=== PATIENT | female | born 1985 | race African-American/Black ===

== ENCOUNTER 2017-03-02 08:28 | Outpatient (CLI) | payer MEDICAID | END 2017-03-02 10:41 | LOC: D.MAMMO 08:28 | DX: N63 Unspecified lump in breast (principal) ==

== ENCOUNTER → 2017-04-07 10:32 | Outpatient (CLI) | payer MEDICAID | END | disposition home or self-care (01) | LOC: D.US 10:32 | DX: N63 Unspecified lump in breast (principal) ==

== ENCOUNTER 2017-05-02 00:09 | Emergency (ER) | payer MEDICAID | END 2017-05-02 01:15 | disposition home or self-care (01) | LOC: D.ER 00:09 | DX: A08.4 Viral intestinal infection, unspecified (principal); M54.5 Low back pain; F17.200 Nicotine dependence, unspecified, uncomplicated; R19.7 Diarrhea, unspecified ==

== ENCOUNTER 2017-06-14 00:44 | Emergency (ER) | payer MEDICAID ==
[2017-06-14 01:32] LABS: HCG URINE NEGATIVE (NEGATIVE)
[2017-06-14 01:35] LABS: APPEARANCE SLT CLOUDY (CLEAR); BILIRUBIN NEGATIVE (NEGATIVE); COLOR DK YELLOW (YELLOW); GLUCOSE NEGATIVE (NEGATIVE); KETONE NEGATIVE (NEGATIVE); LEUKOCYTE ESTERASE 2+ (NEGATIVE); NITRITE NEGATIVE (NEGATIVE); PROTEIN 2+ mg/dL (NEGATIVE); UROBILINOGEN NORMAL (NORMAL)
[2017-06-14 01:37] LABS: BACTERIA MODERATE /hpf (NONE SEEN); EPITHELIAL CELLS 0-5 /hpf (0-5); HYALINE CAST 0-5 /lpf (NONE SEEN); MUCUS <1+ /lpf (NONE SEEN); RED CELLS - URINE 0-5 /hpf (0-5)
== END 2017-06-14 02:20 | disposition home or self-care (01) ==
LOC: D.ER 00:44
PROVIDERS: Family Medicine
DX: J01.90 Acute sinusitis, unspecified (principal)

== ENCOUNTER 2017-07-07 11:01 | Emergency (ER) | payer MEDICAID ==
[2017-07-07 11:55] LABS: BASOPHILS 0.2 % (0-2); EOSINOPHILS 0.9 % (0-7); HEMATOCRIT 33.2 % (36.0-48.0); HEMOGLOBIN 10.4 g/dL (12-16); IMMATURE GRANULOCYTES 0.2 % (0-5); LYMPHOCYTES 24.9 % (15-50); MCHC 31.3 g/dL (31.0-37.0); MCV 66.9 fL (80.0-100.0); MEAN PLATELET VOLUME 8.6 fL (7.4-10.4); MONOCYTES 8.3 % (2-11); NEUTROPHILS 65.5 % (40-80); RBC 4.96 10x6/uL (4.00-5.40); RDW 20.1 % (11.5-14.5); WBC 8.1 10x3/uL (4.8-10.8)
[2017-07-07 11:59] LABS: PLATELET COUNT 448 10x3/uL (130-400)
[2017-07-07 12:23] LABS: ALBUMIN 3.4 g/dL (3.4-5.0); ALKALINE PHOSPHATASE 106 U/L (46-116); ALT (SGPT) 31 U/L (10-68); BILIRUBIN - TOTAL 0.39 mg/dL (0.2-1.3); CALC OSMOLALITY 274 mosm/kg (275-300); CALCIUM 8.8 mg/dL (8.5-10.1); CARBON DIOXIDE 23.5 mmol/L (21.0-32.0); CHLORIDE - SERUM 106 mmol/L (98-107); CREATININE - SERUM 1.1 mg/dL (0.6-1.3); GLUCOSE 101 mg/dL (74-106); POTASSIUM - SERUM 3.9 mmol/L (3.5-5.1); PROTEIN - SERUM 8.2 g/dL (6.4-8.2); SODIUM 138 mmol/L (136-145); UREA NITROGEN 11 mg/dL (7-18); eGFR NON AFRICAN AMERICAN 60 mL/min (90-120)
[2017-07-07 12:24] LABS: TROPONIN-I < 0.017 ng/mL (0.000-0.060)
== END 2017-07-07 13:49 | disposition home or self-care (01) ==
LOC: D.ER 11:01
PROVIDERS: Emergency Medicine
DX: J20.9 Acute bronchitis, unspecified (principal); F17.200 Nicotine dependence, unspecified, uncomplicated; I49.3 Ventricular premature depolarization

== ENCOUNTER 2020-03-26 22:06 | Inpatient (IN) | payer MEDICAID ==
[~2020-03-26] VITALS: Ht 162.6 cm; Wt 104.3 kg
[2020-03-26] MEDS ORDERED: CYMBALTA60 MG PO (22:19)
[2020-03-26] MEDS ORDERED: GABAPENTIN300 MG PO (22:20)
[2020-03-26] MEDS ORDERED: CELEBREX50 MG PO (22:20)
[2020-03-26] MEDS ORDERED: VISTARIL50 MG PO (22:21)
[2020-03-26 22:42] LABS: BASOPHILS 0.2 % (0-2); EOSINOPHILS 1.9 % (0-7); HEMATOCRIT 43.5 % (36.0-48.0); HEMOGLOBIN 14.5 g/dL (12-16); IMMATURE GRANULOCYTES 0.3 % (0-5); LYMPHOCYTES 34.2 % (15-50); MCH 26.1 pg (26.0-34.0); MCHC 33.3 g/dL (31.0-37.0); MCV 78.2 fL (80.0-100.0); MEAN PLATELET VOLUME 9.2 fL (7.4-10.4); MONOCYTES 10.2 % (2-11); NEUTROPHILS 53.2 % (40-80); PLATELET COUNT 361 10x3/uL (130-400); RBC 5.56 10x6/uL (4.00-5.40); RDW 17.4 % (11.5-14.5); WBC 10.4 10x3/uL (4.8-10.8)
[2020-03-26 22:46] LABS: BILIRUBIN NEGATIVE (NEGATIVE); GLUCOSE NEGATIVE (NEGATIVE); KETONE NEGATIVE (NEGATIVE); NITRITE NEGATIVE (NEGATIVE); SPECIFIC GRAVITY 1.015 (1.005-1.020); UROBILINOGEN NORMAL (NORMAL)
[2020-03-26 22:52] LABS: HCG SERUM NEGATIVE (NEGATIVE)
[2020-03-26 22:53] LABS: BACTERIA MODERATE /hpf (NEGATIVE); RED CELLS - URINE 0-5 /hpf (0-5); WHITE CELLS - URINE 25-50 /hpf (NEGATIVE)
[2020-03-26 22:54] LABS: ALBUMIN 3.3 g/dL (3.4-5.0); ANION GAP 13.9 mmol/L (8-16); BILIRUBIN - TOTAL 0.65 mg/dL (0.2-1.3); CALCIUM 8.8 mg/dL (8.5-10.1); CARBON DIOXIDE 25.9 mmol/L (21.0-32.0); CREATININE - SERUM 2.5 mg/dL (0.6-1.3); PROTEIN - SERUM 7.7 g/dL (6.4-8.2)
[2020-03-26 22:55] LABS: UDS - AMPHET NEGATIVE QUAL (NEGATIVE); UDS - BARB NEGATIVE QUAL (NEGATIVE); UDS - BENZO NEGATIVE QUAL (NEGATIVE); UDS - COCAINE NEGATIVE QUAL (NEGATIVE); UDS - OPIATE NEGATIVE QUAL (NEGATIVE); UDS - PCP NEGATIVE QUAL (NEGATIVE); UDS - THC POSITIVE QUAL (NEGATIVE)
[2020-03-26 22:55] LABS: POTASSIUM - SERUM 2.8 mmol/L (3.5-5.1)
--- NOTE | 2020-03-27 00:12 | NUR ---
PT TO RADIOLOGY VIA WHEELCHAIR AT THIS TIME.
--- NOTE | 2020-03-27 00:23 | NUR ---
PT RETURNED FROM RADIOLOGY VIA WHEELCHAIR AT THIS TIME.
--- NOTE | 2020-03-27 02:40 | NUR ---
PT ARRIVED TO THE FLOOR. ALERT AND ORIENTED. NO SIGNS OF DISTRESS. BREATHING EVEN AND UNLABORED. PT STATES NO PROBLEMS AT THIS TIME. IV SITE RT FA DRESSING CLEAN DRY AND INTACT. NO SIGNS OF INFECTION OR INFULTRATION. SKIN CLEAN DRY AND INTACT. LUNG SOUNDS CLEAR. BOWEL SOUNDS ACTIVE. WILL CONTINUE PLAN OF CARE. CALL LIGHT IN REACH. BED LOWERED AND LOCKED. BED RAILS UPX1.
[2020-03-27] MEDS ORDERED: CYCLOBENZAPRINE10 MG PO (02:42)
[2020-03-27 02:54] VITALS: BP 127/76; BMI 39.5
[2020-03-27 04:00] VITALS: BP 127/76
[2020-03-27 05:28] LABS: BASOPHILS 0.3 % (0-2); EOSINOPHILS 1.9 % (0-7); HEMATOCRIT 36.8 % (36.0-48.0); IMMATURE GRANULOCYTES 0.1 % (0-5); LYMPHOCYTES 38.9 % (15-50); MCH 25.6 pg (26.0-34.0); MCHC 32.6 g/dL (31.0-37.0); MCV 78.5 fL (80.0-100.0); MEAN PLATELET VOLUME 9.3 fL (7.4-10.4); MONOCYTES 11.8 % (2-11); PLATELET COUNT 323 10x3/uL (130-400); RBC 4.69 10x6/uL (4.00-5.40); RDW 17.5 % (11.5-14.5)
[2020-03-27 05:35] LABS: WBC 7.3 10x3/uL (4.8-10.8)
[2020-03-27 05:45] LABS: ALBUMIN 2.6 g/dL (3.4-5.0); ANION GAP 10.4 mmol/L (8-16); BILIRUBIN - TOTAL 0.48 mg/dL (0.2-1.3); CALCIUM 7.7 mg/dL (8.5-10.1); CARBON DIOXIDE 26.4 mmol/L (21.0-32.0); PROTEIN - SERUM 6.2 g/dL (6.4-8.2)
[2020-03-27 06:10] LABS: POTASSIUM - SERUM 2.8 mmol/L (3.5-5.1)
--- NOTE | 2020-03-27 07:52 | NUR ---
RESTING IN BED, NO DISTRESS NOTED, TELE IN PLACE, IV INFUSING, REPLACING K THIS AM, CONT TO MONITOR NAUSEA AND LABS
[2020-03-27] MEDS ORDERED: CELEBREX200 MG (08:57)
[2020-03-27 09:00] VITALS: BP 105/70
[2020-03-27 11:03] VITALS: Ht 162.6 cm; Wt 104.3 kg
[2020-03-27 12:57] VITALS: BP 119/80
[2020-03-27 16:53] VITALS: BP 119/76
[2020-03-27 20:00] VITALS: BP 119/76
[2020-03-28] VITALS: BP 122/72
--- NOTE | 2020-03-28 00:34 | NUR ---
I have reviewed this patient and I concur with the Shift Assessment completed by the Licensed Practical Nurse today this shift.
--- NOTE | 2020-03-28 02:34 | NUR ---
IV INFULTRATED. NEW IV SITED LT HAND 22G. ATEMPTS X2. PT TOLERATED WELL. WILL CONTINUE IV FLUIDS. CALL LIGHT IN REACH. BED LOWERED AND LOCKED. BED RAILS UPX2.
[2020-03-28 04:00] VITALS: BP 112/81
[2020-03-28 06:52] LABS: ANION GAP 13.2 mmol/L (8-16); CALCIUM 7.4 mg/dL (8.5-10.1); CARBON DIOXIDE 24.6 mmol/L (21.0-32.0); CREATININE - SERUM 1.6 mg/dL (0.6-1.3); MAGNESIUM - SERUM 1.4 mg/dL (1.8-2.4); PHOSPHOROUS 3.8 mg/dL (2.5-4.9)
[2020-03-28 06:53] LABS: POTASSIUM - SERUM 3.8 mmol/L (3.5-5.1)
[2020-03-28 07:10] LABS: BASOPHILS 0.4 % (0-2); EOSINOPHILS 4.2 % (0-7); HEMOGLOBIN 11.1 g/dL (12-16); IMMATURE GRANULOCYTES 0.2 % (0-5); LYMPHOCYTES 40.7 % (15-50); MCH 25.9 pg (26.0-34.0); MCHC 32.6 g/dL (31.0-37.0); MCV 79.3 fL (80.0-100.0); MEAN PLATELET VOLUME 9.2 fL (7.4-10.4); NEUTROPHILS 43.5 % (40-80); PLATELET COUNT 290 10x3/uL (130-400); RBC 4.29 10x6/uL (4.00-5.40); RDW 17.6 % (11.5-14.5)
[2020-03-28 07:11] LABS: WBC 4.8 10x3/uL (4.8-10.8)
--- NOTE | 2020-03-28 08:58 | NUR ---
MAG REPLACED PER PROTOCOL. MEDS GIVEN PER EMAR. CL IN REACH. NO FURTHER NEEDS AT THIS TIME. WCTM
[2020-03-28 09:22] VITALS: BP 105/65
--- NOTE | 2020-03-28 10:52 | NUR ---
PATIENT SIGNED CHAIR AND BED REFUSAL FORM. CL IN REACH. EXPLAINED THAT IF HE WERE TO FALL INSURANCE WOULD NOT COVER THE COSTS. ALSO, EXPLAINED THAT IF HE USED HIS CALL LIGHT I WOULD COME AND ASSIST STILL. BUT HE IS STABLE WALKING, STANDS A MINUTE TO GAIN HIS BEARINGS. PROVIDED A WALKER FOR EASE OF CONSCIENCE. ALERT AND COMPLETELY ORIENTED. WCTM
--- NOTE | 2020-03-28 10:57 | NUR ---
PT UP AMBULATING HALLS WITH VISITOR.
[2020-03-28 12:51] VITALS: BP 114/85
[2020-03-28] MEDS ORDERED: CARAFATE1 G PO (14:35)
[2020-03-28] MEDS ORDERED: PROTONIX40 MG PO (14:35)
[2020-03-28] MEDS ORDERED: NICODERM CQ1 EAC1 TOPICAL (15:04)
--- NOTE | 2020-03-28 15:47 | NUR ---
IV THERAPY DC'ED WITH TIP INTACT FROM LEFT HAND. DISCHARGE INSTRUCTIONS GIVEN. PATIENT VOICED UNDERSTANDING. REFUSED WHEELCHAIR DOWN. WILL NOTIFY ME WHEN SHE IS LEAVING. IN ROOM READY TO TAKE HER HOME.
== END 2020-03-28 16:18 | disposition home or self-care (01) | DRG 683 ==
LOC: D.ER 22:06 → D.MS 23:46 → OBSVTIME 23:46 → D.MS 23:46
PROVIDERS: Family Medicine; ADMIT Family Medicine; ATTEND Family Medicine
DX: N17.9 Acute kidney failure, unspecified (principal); N39.0 Urinary tract infection, site not specified; R10.13 Epigastric pain; E87.6 Hypokalemia; E86.0 Dehydration; K44.9 Diaphragmatic hernia without obstruction or gangrene; R73.9 Hyperglycemia, unspecified; I10 Essential (primary) hypertension; F12.90 Cannabis use, unspecified, uncomplicated